=== PATIENT | male | born 1955 | race Caucasian/White ===

== ENCOUNTER 2019-03-25 09:16 | Day surgery (SDC) | payer BC ==
[~2019-03-25] VITALS: Ht 172.7 cm; Wt 82.4 kg
[2019-03-25] VITALS (9 sets, daily range): BP systolic 121–153; BP diastolic 77–93
[2019-03-25] MEDS ORDERED: diphenhydrAMINE 25mg capsule PO PRN (09:40)
[2019-03-25] MEDS ORDERED: normal saline 1,000 ML IV SCH (09:40)
[2019-03-25] MEDS ORDERED: ATOR10TA PO (10:01)
[2019-03-25 10:28] LABS: BASOPHILS % (AUTO) 0.6 % (0-1); EOSINOPHILS # (AUTO) 0.1 X10'3 (0-0.9); EOSINOPHILS % (AUTO) 1.8 % (0-6); HEMATOCRIT 42.8 % (42.0-52.0); HEMOGLOBIN 14.9 g/dl (14.0-17.9); LYMPHOCYTES # (AUTO) 1.3 X10'3 (1.1-4.8); LYMPHOCYTES % (AUTO) 24.4 % (21-51); MEAN CORPUSCULAR HEMOGLOBIN 33.4 PG (27.0-31.0); MEAN CORPUSCULAR HGB CONC 34.7 g/dL (33.0-36.5); MEAN CORPUSCULAR VOLUME 96.2 FL (78-98); MEAN PLATELET VOLUME 7.7 FL (7.4-10.4); MONOCYTES # (AUTO) 0.4 X10'3 (0-0.9); NEUTROPHILS # (AUTO) 3.3 X10'3 (1.8-7.7); NEUTROPHILS % (AUTO) 65.2 % (42-75); PLATELET COUNT 223 X10'3 (140-440); RED BLOOD COUNT 4.45 X10'6 (4.70-6.10); RED CELL DISTRIBUTION WIDTH 12.1 % (11.5-14.5); WHITE BLOOD COUNT 5.1 X10'3 (4.5-11.0)
[2019-03-25 10:37] LABS: ALBUMIN 3.6 G/DL (3.4-5.0); ANION GAP 12 (8-16); BLOOD UREA NITROGEN 14 MG/DL (7-18); BUN/CREATININE RATIO 15.6 (5.4-32.0); CHLORIDE 105 MMOL/L (99-107); GLUCOSE 91 MG/DL (70-104); MAGNESIUM 1.9 MG/DL (1.5-2.4); POTASSIUM 4.3 MMOL/L (3.5-5.1); SODIUM 142 MMOL/L (135-145); TOTAL CARBON DIOXIDE 25.2 MMOL/L (24-32); eGFR 86 ML/MIN
[2019-03-25] MEDS ORDERED: LIDOcaine 1% (10mg/ml)w/preservative injection 20ml MDV ONE (11:14)
[2019-03-25] MEDS ORDERED: fentaNYL/PF 50MCG/1 ML 2ML syringe ONE (11:14)
[2019-03-25] MEDS ORDERED: midazolam 2 mg/2 ml injection ONE ×2 (11:14→11:53)
[2019-03-25] MEDS ORDERED: iohexol 350 MG/ML 50ML vial IV ONE (11:15)
[2019-03-25] MEDS ORDERED: iohexol 350MG/ML 100ml bottle IV ONE (11:15)
[2019-03-25] MEDS ORDERED: OXAZEpam 15mg capsule PO PRN (12:50)
[2019-03-25] MEDS ORDERED: HYDROcodone/acetaminophen 5mg/325mg tablet PO PRN (12:50)
[2019-03-25] MEDS ORDERED: proCHLORperazine 10 MG/2 ml inj IV PRN (12:50)
[2019-03-25] MEDS ORDERED: HYDROcodone/acetaminophen 10/325mg tab PO PRN (12:50)
[2019-03-25] MEDS ORDERED: ondansetron/PF 4mg/2ml inj IV PRN (12:50)
== END 2019-03-25 15:20 | disposition home or self-care (01) ==
LOC: SSTAY O 09:16
PROVIDERS: ATTEND Internal Medicine Cardiovascular Disease
DX: R94.39 Abnormal result of other cardiovascular function study (principal); R06.02 Shortness of breath; R07.89 Other chest pain; E78.00 Pure hypercholesterolemia, unspecified; Z98.1 Arthrodesis status; Z72.89 Other problems related to lifestyle; Z79.899 Other long term (current) drug therapy; Z82.49 Family history of ischemic heart disease and other diseases of the circulatory system
CPT/HCPCS: 36415; 80048; 83735; 85025; 85610; 93458; 99152; C1769; C1894; J1644; J2001; J2250; J3010; J7030; Q0163; Q9967; 93005; 99153; A4620; A6258; C1760